=== PATIENT | female | born 1995 | race American Indian/Alaskan Native ===

== ENCOUNTER 2017-01-27 05:00 | Emergency (ER) | payer SELFPAY ==
[2017-01-27] MEDS ORDERED: Ondansetron 4 MG/2 ML SDV IVPUSH ONE (05:43)
[2017-01-27] MEDS ORDERED: HYDROmorphone 1 MG/ML Syringe IVPUSH ONE (05:43)
[2017-01-27] MEDS ORDERED: LORazepam 2 MG/ML MDV IVPUSH ONE (05:44)
[2017-01-27] MEDS ORDERED: Sodium Chloride 0.9% 1,000 ML IV SCH ×3 (05:45→08:00)
[2017-01-27] MEDS ORDERED: Ciprofloxacin 500 MG Tab PO ONE (06:52)
[2017-01-27] MEDS ORDERED: Sodium Chloride 0.9% 10 ML Syringe FLUSH ONE (07:02)
--- NOTE | 2017-01-27 07:04 | EDM.PDOC ---
<Jeremias Chino - Last Filed: 01/27/17 07:04> ED HPI GENERAL MEDICAL PROBLEM - General Chief Complaint: Abdominal Pain Stated Complaint: SOB/ABD PAIN Time Seen by Provider: 01/27/17 05:36 Source of Information: Reports: Patient History Limitations: Reports: No Limitations - History of Present Illness INITIAL COMMENTS - FREE TEXT/NARRATIVE: History of present illness: [21-year-old female presented complaining of severe abdominal pain located in the right upper quadrant. She presented crying she was in so much pain. About one month ago she took plan B and currently is having a heavy period. She denies any fevers or chills slight nausea no vomiting no constipation diarrhea or dysuria. She initially was complaining of shortness of breath as well. She's had no cough. She has no history of PE or blood clots.] Review of systems: As per history of present illness and below otherwise all systems reviewed and negative. Past medical history: As per history of present illness and as reviewed below otherwise noncontributory. Surgical history: As per history of present illness and as reviewed below otherwise noncontributory. Social history: No reported history of drug or alcohol abuse. Family history: As per history of present illness and as reviewed below otherwise noncontributory. Physical exam: Gen.: She presented in severe pain very slow to move very slow to lie down on the gurney and tearful. HEENT: Atraumatic, normocephalic, pupils reactive, negative for conjunctival pallor or scleral icterus, mucous membranes moist, throat clear, neck supple, nontender, trachea midline. Lungs: Clear to auscultation, breath sounds equal bilaterally, chest nontender. Heart: S1S2, regular, negative for clicks, rubs, or JVD. Abdomen: She had tenderness to palpation in the right upper quadrant and some questionable CVA tenderness on the right as well. No masses or organomegaly were appreciated all sounds were active. Pelvis: Stable nontender. Genitourinary: Deferred. Rectal: Deferred. Extremities: Atraumatic, negative for cords or calf pain. Neurovascular unremarkable. Neuro: Awake, alert, oriented. Cranial nerves II through XII unremarkable. Cerebellum unremarkable. Motor and sensory unremarkable throughout. Exam nonfocal. Diagnostics: [CBC is running a white count of 21,000 UA is positive with 75-100 white cells and many bacteria. Her d-dimer is over 1200. Urine culture is ordered] Therapeutics: [She's receiving IV fluids and I ordered by mouth Cipro 500 mg. She eventually told me that she was supposed to be on antibiotics for a UTI but she hasn't taken them for a week. She is upset at the [facility] for giving her "cheap antibiotics" that don't work..] Impression: [UTI with possible pyelonephritis. We are in the process of ruling out pulmonary embolus given the elevated d-dimer.] Plan: [Dr. Prescott will need to assume care and disposition.] Definitive disposition and diagnosis as appropriate pending reevaluation and review of above. abdominal pain Pain Score (Numeric/FACES): 10 - Related Data Allergies Allergy/AdvReac Type Severity Reaction Status Date / Time No Known Allergies Allergy Verified 01/27/17 05:14 Home Meds: Home Meds NK [No Known Home Meds] 01/27/17 [History] Past Medical History Cardiovascular History: Reports: None Respiratory History: Reports: None Gastrointestinal History: Reports: Chronic Constipation Genitourinary History: Reports: None RESIDENTIAL THERAPIST History: Reports: None Musculoskeletal History: Reports: Other (See Below) Other Musculoskeletal History: right side rib fx Neurological History: Reports: Migraines Psychiatric History: Reports: Anxiety, Depression Endocrine/Metabolic History: Reports: None Hematologic History: Reports: None Immunologic History: Reports: None Oncologic (Cancer) History: Reports: None Dermatologic History: Reports: None - Infectious Disease History Infectious Disease History: Reports: Chicken Pox - Past Surgical History Head Surgeries/Procedures: Reports: None HEENT Surgical History: Reports: None Cardiovascular Surgical History: Reports: None Respiratory Surgical History: Reports: None GI Surgical History: Reports: None Female Surgical History: Reports: None Endocrine Surgical History: Reports: None Neurological Surgical History: Reports: None Musculoskeletal Surgical History: Reports: None Oncologic Surgical History: Reports: None Dermatological Surgical History: Reports: None Social & Family History - Tobacco Use Smoking Status *Q: Current Every Day Smoker Years of Tobacco use: 2 Packs/Tins Daily: 0.5 - Caffeine Use Caffeine Use: Reports: Soda - Recreational Drug Use Recreational Drug Use: No ED ROS GENERAL - Review of Systems Review Of Systems: ROS reveals no pertinent complaints other than HPI. ED EXAM, GI/ABD - Physical Exam Exam: See Below Course - Vital Signs Last Recorded V/S: Last Vital Signs Temp 37.4 C 01/27/17 07:04 Pulse 104 H 01/27/17 07:04 Resp 20 01/27/17 07:04 BP 125/77 01/27/17 07:04 Pulse Ox 98 01/27/17 07:04 - Orders/Labs/Meds Orders: Active Orders 24 hr Category Date Time Status Ang Chest [CT] Stat Exams 01/27/17 06:59 Taken CULTURE URINE [RM] Stat Lab 01/27/17 07:04 Received Iopamidol [Isovue-370 (76%)] Med 01/27/17 07:15 Active 100 ml IV . DIRECTED Sodium Chloride 0.9% [Normal Saline] 1,000 ml Med 01/27/17 07:00 Active IV ASDIRECTED Sodium Chloride 0.9% [Normal Saline] 1,000 ml Med 01/27/17 08:00 Active IV ASDIRECTED Sodium Chloride 0.9% [Normal Saline] 82 ml Med 01/27/17 07:15 Active IV ASDIRECTED cefTRIAXone [Rocephin] 1 gm Med 01/27/17 08:00 Active Sodium Chloride 0.9% [Normal Saline] 50 ml IV ONETIME Medication Orders Sodium Chloride (Normal Saline) 1,000 mls @ 999 mls/hr IV ASDIRECTED [facility] Last Admin: 01/27/17 07:03 Dose: 999 mls/hr Sodium Chloride (Normal Saline) 82 mls @ 4 mls/sec IV ASDIRECTED [facility] Last Admin: 01/27/17 07:26 Dose: 4 mls/sec Sodium Chloride (Normal Saline) 1,000 mls @ 999 mls/hr IV ASDIRECTED [facility] Last Admin: 01/27/17 08:10 Dose: 999 mls/hr Ceftriaxone Sodium 1 gm/ (Sodium Chloride) 50 mls @ 100 mls/hr IV ONETIME ONE Stop: 01/27/17 08:29 Last Admin: 01/27/17 08:10 Dose: 100 mls/hr Iopamidol (Isovue-370 (76%)) 100 ml IV . DIRECTED [facility] Last Admin: 01/27/17 07:27 Dose: 100 ml Labs: Laboratory Tests 07/20/17 07/20/17 07/20/17 Range/Units 05:35 05:36 06:00 WBC 21.3 H (4.5-11.0) K/uL RBC 4.60 (3.30-5.50) M/uL Hgb 14.7 (12.0-15.0) g/dL Hct 43.2 (36.0-48.0) % MCV 94 (80-98) fL MCH 32 H (27-31) pg MCHC 34 (32-36) % Plt Count 471 H (150-400) K/uL Neut % (Auto) 81 H (36-66) % Lymph % (Auto) 7 L (24-44) % [place] % (Auto) 11 H (2-6) % Eos % (Auto) 0 L (2-4) % Baso % (Auto) 1 (0-1) % D-Dimer, Quantitative (0.0-400.0) ng/mL Sodium (140-148) mmol/L Potassium (3.6-5.2) mmol/L Chloride (100-108) mmol/L Carbon Dioxide (21-32) mmol/L Anion Gap (5.0-14.0) mmol/L BUN (7-18) mg/dL Creatinine (0.6-1.0) mg/dL Est Cr Clr Drug Dosing mL/min Estimated GFR (MDRD) (>60) Glucose (74-106) mg/dL Calcium (8.5-10.1) mg/dL Total Bilirubin (0.2-1.0) mg/dL AST (15-37) U/L ALT (12-78) U/L Alkaline Phosphatase (46-116) U/L Total Protein (6.4-8.2) g/dL Albumin (3.4-5.0) g/dL Globulin (2.3-3.5) g/dL Albumin/Globulin Ratio (1.2-2.2) Amylase (25-115) U/L Lipase (73-393) U/L Urine Color Yellow Urine Appearance Cloudy Urine pH 5.0 (4.5-8.0) Ur Specific [place] 1.020 (1.008-1.030) Urine Protein Trace (NEGATIVE) mg/dL Urine Glucose (UA) Normal (NEGATIVE) mg/dL Urine Ketones 15 H (NEGATIVE) mg/dL Urine Occult Blood Large (NEGATIVE) Urine Nitrite Positive H (NEGATIVE) Urine Bilirubin Negative (NEGATIVE) Urine Urobilinogen Normal (NORMAL) mg/dL Ur Leukocyte Esterase Large (NEGATIVE) Urine RBC 40-50 H (0-5) Urine WBC 75-100 H (0-5) Ur Epithelial Cells Moderate Amorphous Sediment Not seen Urine Bacteria Many Urine Mucus Not seen Urine HCG, Qual Negative Urine Opiates Screen (NEGATIVE) Ur Oxycodone Screen (NEGATIVE) Urine Methadone Screen (NEGATIVE) Ur Propoxyphene Screen (NEGATIVE) Ur Barbiturates Screen (NEGATIVE) Ur Tricyclics Screen (NEGATIVE) Ur Phencyclidine Scrn (NEGATIVE) Ur Amphetamine Screen (NEGATIVE) U Methamphetamines Scrn (NEGATIVE) Urine MDMA Screen (NEGATIVE) U Benzodiazepines Scrn (NEGATIVE) U Cocaine Metab Screen (NEGATIVE) U Marijuana (THC) Screen (NEGATIVE) 01/27/17 01/27/17 01/27/17 Range/Units 06:00 06:00 06:00 WBC (4.5-11.0) K/uL RBC (3.30-5.50) M/uL Hgb (12.0-15.0) g/dL Hct (36.0-48.0) % MCV (80-98) fL MCH (27-31) pg MCHC (32-36) % Plt Count (150-400) K/uL Neut % (Auto) (36-66) % Lymph % (Auto) (24-44) % [place] % (Auto) (2-6) % Eos % (Auto) (2-4) % Baso % (Auto) (0-1) % D-Dimer, Quantitative 1970 H (0.0-400.0) ng/mL Sodium 139 L (140-148) mmol/L Potassium 3.9 (3.6-5.2) mmol/L Chloride 102 (100-108) mmol/L Carbon Dioxide 27 (21-32) mmol/L Anion Gap 13.9 (5.0-14.0) mmol/L BUN 10 (7-18) mg/dL Creatinine 0.8 (0.6-1.0) mg/dL Est Cr Clr Drug Dosing 93.21 mL/min Estimated GFR (MDRD) > 60 (>60) Glucose 96 (74-106) mg/dL Calcium 9.2 (8.5-10.1) mg/dL Total Bilirubin 0.3 (0.2-1.0) mg/dL AST 17 (15-37) U/L ALT 15 (12-78) U/L Alkaline Phosphatase 79 (46-116) U/L Total Protein 8.6 H (6.4-8.2) g/dL Albumin 3.4 (3.4-5.0) g/dL Globulin 5.2 H (2.3-3.5) g/dL Albumin/Globulin Ratio 0.7 L (1.2-2.2) Amylase 51 (25-115) U/L Lipase 94 (73-393) U/L Urine Color Urine Appearance Urine pH (4.5-8.0) Ur Specific [place] (1.008-1.030) Urine Protein (NEGATIVE) mg/dL Urine Glucose (UA) (NEGATIVE) mg/dL Urine Ketones (NEGATIVE) mg/dL Urine Occult Blood (NEGATIVE) Urine Nitrite (NEGATIVE) Urine Bilirubin (NEGATIVE) Urine Urobilinogen (NORMAL) mg/dL Ur Leukocyte Esterase (NEGATIVE) Urine RBC (0-5) Urine WBC (0-5) Ur Epithelial Cells Amorphous Sediment Urine Bacteria Urine Mucus Urine HCG, Qual Urine Opiates Screen (NEGATIVE) Ur Oxycodone Screen (NEGATIVE) Urine Methadone Screen (NEGATIVE) Ur Propoxyphene Screen (NEGATIVE) Ur Barbiturates Screen (NEGATIVE) Ur Tricyclics Screen (NEGATIVE) Ur Phencyclidine Scrn (NEGATIVE) Ur Amphetamine Screen (NEGATIVE) U Methamphetamines Scrn (NEGATIVE) Urine MDMA Screen (NEGATIVE) U Benzodiazepines Scrn (NEGATIVE) U Cocaine Metab Screen (NEGATIVE) U Marijuana (THC) Screen (NEGATIVE) 01/27/17 Range/Units 06:10 WBC (4.5-11.0) K/uL RBC (3.30-5.50) M/uL Hgb (12.0-15.0) g/dL Hct (36.0-48.0) % MCV (80-98) fL MCH (27-31) pg MCHC (32-36) % Plt Count (150-400) K/uL Neut % (Auto) (36-66) % Lymph % (Auto) (24-44) % [place] % (Auto) (2-6) % Eos % (Auto) (2-4) % Baso % (Auto) (0-1) % D-Dimer, Quantitative (0.0-400.0) ng/mL Sodium (140-148) mmol/L Potassium (3.6-5.2) mmol/L Chloride (100-108) mmol/L Carbon Dioxide (21-32) mmol/L Anion Gap (5.0-14.0) mmol/L BUN (7-18) mg/dL Creatinine (0.6-1.0) mg/dL Est Cr Clr Drug Dosing mL/min Estimated GFR (MDRD) (>60) Glucose (74-106) mg/dL Calcium (8.5-10.1) mg/dL Total Bilirubin (0.2-1.0) mg/dL AST (15-37) U/L ALT (12-78) U/L Alkaline Phosphatase (46-116) U/L Total Protein (6.4-8.2) g/dL Albumin (3.4-5.0) g/dL Globulin (2.3-3.5) g/dL Albumin/Globulin Ratio (1.2-2.2) Amylase (25-115) U/L Lipase (73-393) U/L Urine Color Urine Appearance Urine pH (4.5-8.0) Ur Specific [place] (1.008-1.030) Urine Protein (NEGATIVE) mg/dL Urine Glucose (UA) (NEGATIVE) mg/dL Urine Ketones (NEGATIVE) mg/dL Urine Occult Blood (NEGATIVE) Urine Nitrite (NEGATIVE) Urine Bilirubin (NEGATIVE) Urine Urobilinogen (NORMAL) mg/dL Ur Leukocyte Esterase (NEGATIVE) Urine RBC (0-5) Urine WBC (0-5) Ur Epithelial Cells Amorphous Sediment Urine Bacteria Urine Mucus Urine HCG, Qual Urine Opiates Screen Negative (NEGATIVE) Ur Oxycodone Screen Negative (NEGATIVE) Urine Methadone Screen Negative (NEGATIVE) Ur Propoxyphene Screen Negative (NEGATIVE) Ur Barbiturates Screen Negative (NEGATIVE) Ur Tricyclics Screen Negative (NEGATIVE) Ur Phencyclidine Scrn Negative (NEGATIVE) Ur Amphetamine Screen Negative (NEGATIVE) U Methamphetamines Scrn Negative (NEGATIVE) Urine MDMA Screen Negative (NEGATIVE) U Benzodiazepines Scrn Negative (NEGATIVE) U Cocaine Metab Screen Negative (NEGATIVE) U Marijuana (THC) Screen Positive H (NEGATIVE) Meds: Medications Generic Name Dose Route Start Last Admin Trade Name Freq PRN Reason Stop Dose Admin Sodium Chloride 1,000 mls @ 999 mls/hr 01/27/17 07:00 01/27/17 07:03 Normal Saline IV 999 mls/hr ASDIRECTED BRAD Administration Sodium Chloride 82 mls @ 4 mls/sec 01/27/17 07:15 01/27/17 07:26 Normal Saline IV 4 mls/sec ASDIRECTED BRAD Administration Sodium Chloride 1,000 mls @ 999 mls/hr 01/27/17 08:00 01/27/17 08:10 Normal Saline IV 999 mls/hr ASDIRECTED BRAD Administration Ceftriaxone Sodium 1 gm/ 50 mls @ 100 mls/hr 01/27/17 08:00 01/27/17 08:10 Sodium Chloride IV 01/27/17 08:29 100 mls/hr ONETIME ONE Administration Iopamidol 100 ml 01/27/17 07:15 01/27/17 07:27 Isovue-370 (76%) IV 100 ml . DIRECTED BRAD Administration Discontinued Medications Generic Name Dose Route Start Last Admin Trade Name Toniq PRN Reason Stop Dose Admin Ciprofloxacin 500 mg 01/27/17 06:52 01/27/17 07:03 Ciprofloxacin Hcl PO 01/27/17 06:53 500 mg ONETIME ONE Administration Hydromorphone HCl 0.5 mg 01/27/17 05:43 01/27/17 06:01 Dilaudid IVPUSH 01/27/17 05:44 0.5 mg ONETIME ONE Administration Sodium Chloride 1,000 mls @ 500 mls/hr 01/27/17 05:45 01/27/17 06:01 Normal Saline IV 500 mls/hr ASDIRECTED BRAD Administration Lorazepam 1 mg 01/27/17 05:44 01/27/17 06:59 Ativan IVPUSH 01/27/17 05:45 Not Given ONETIME ONE Lorazepam 0.5 mg 01/27/17 08:18 Ativan PO 01/27/17 08:19 ONETIME ONE Ondansetron HCl 4 mg 01/27/17 05:43 01/27/17 06:01 Zofran IVPUSH 01/27/17 05:44 4 mg ONETIME ONE Administration Sodium Chloride 10 ml 01/27/17 07:02 01/27/17 07:26 Saline Flush FLUSH 01/27/17 07:03 10 ml ONETIME ONE Administration Departure - Departure Disposition: Home, Self-Care 01 Clinical Impression: Pyelonephritis - Discharge Information Forms: ED Department Discharge Care Plan Goals: push fluids, cipro 500mg bid for 10 days, rtc if pt is more ill, tylenol and motrin for pain. - My Orders Last 24 Hours: My Active Orders 01/27/17 08:00 Sodium Chloride 0.9% [Normal Saline] 1,000 ml IV ASDIRECTED cefTRIAXone [Rocephin] 1 gm Sodium Chloride 0.9% [Normal Saline] 50 ml IV ONETIME - Assessment/Plan Last 24 Hours: My Active Orders 01/27/17 08:00 Sodium Chloride 0.9% [Normal Saline] 1,000 ml IV ASDIRECTED cefTRIAXone [Rocephin] 1 gm Sodium Chloride 0.9% [Normal Saline] 50 ml IV ONETIME <Britt Prescott - Last Filed: 01/27/17 08:25> Course - Re-Assessments/Exams Free Text/Narrative Re-Assessment/Exam: 01/27/17 08:19 pt had a neg cat scan of the chest for PEs. She was given rocephen 1 gm iv and she had her first dose of cipro. She states she does not have the money to get anantibiotic.s She will be given 4.00 for a 10 day course of cipro. Departure - Departure Time of Disposition: 08:23 Condition: Fair
[2017-01-27 07:05] VITALS: BP 125/77
[2017-01-27] MEDS ORDERED: Iopamidol 755 Mg/ML 100 ML Bottle IV SCH (07:15)
[2017-01-27] MEDS ORDERED: cefTRIAXone 1 GM in Sodium Chloride 0.9% 50 ML IV ONE ×2 (07:16→08:00)
[2017-01-27] MEDS ORDERED: LORazepam 0.5 MG Tab PO ONE (08:18)
== END 2017-01-27 08:58 | disposition home or self-care (01) ==
LOC: JP.ED 05:00
DX: N12 Tubulo-interstitial nephritis, not specified as acute or chronic (principal); G43.909 Migraine, unspecified, not intractable, without status migrainosus; F17.210 Nicotine dependence, cigarettes, uncomplicated
CPT/HCPCS: 36415; 71275; 80053; 80305; 81001; 81025; 82150; 83690; 85025; 85379; 87077; 87086; 87186; 96361; 96374; 96375; 99284; A9270; J0696; J1170; J2405; J7030; J7040; J7050; Q9967

== ENCOUNTER 2020-08-08 01:46 | Emergency (ER) | payer MEDICAID ==
[2020-08-08 01:59] VITALS: BP 112/78; PULSE 68
--- NOTE | 2020-08-08 02:08 | EDM.PDOC ---
ED HPI GENERAL MEDICAL PROBLEM - General Chief Complaint: Abdominal Pain Stated Complaint: ABD PAIN Time Seen by Provider: 08/08/20 01:56 Source of Information: Reports: Patient History Limitations: Reports: No Limitations - History of Present Illness INITIAL COMMENTS - FREE TEXT/NARRATIVE: Amrita is a 25-year-old female presenting to the ED for evaluation of mid abdominal pain that occurred before and after she had a 15-minute period of repeated vomiting. The patient reports that she vomited up white rice which is what she had consumed with dinner. She denies any fever or chills. She no longer has any nausea. She denies any diarrhea or constipation. She is complaining of sharp pain in the mid abdominal area between the epigastric and umbilicus regions. Pain is reproducible with palpation over the abdominal wall. The patient otherwise feels well. - Related Data Allergies Allergy/AdvReac Type Severity Reaction Status Date / Time No Known Allergies Allergy Verified 08/08/20 01:58 Home Meds: Home Meds NK [No Known Home Meds] 01/27/17 [History] Past Medical History Cardiovascular History: Reports: None Respiratory History: Reports: None Gastrointestinal History: Reports: Chronic Constipation Genitourinary History: Reports: None INTERNAL COMMUNICATIONS WRITER History: Reports: None Musculoskeletal History: Reports: Other (See Below) Other Musculoskeletal History: right side rib fx Neurological History: Reports: Migraines Psychiatric History: Reports: Anxiety, Depression Endocrine/Metabolic History: Reports: None Hematologic History: Reports: None Immunologic History: Reports: None Oncologic (Cancer) History: Reports: None Dermatologic History: Reports: None - Infectious Disease History Infectious Disease History: Reports: Chicken Pox - Past Surgical History Head Surgeries/Procedures: Reports: None HEENT Surgical History: Reports: None Cardiovascular Surgical History: Reports: None Respiratory Surgical History: Reports: None GI Surgical History: Reports: None Female Surgical History: Reports: None Endocrine Surgical History: Reports: None Neurological Surgical History: Reports: None Musculoskeletal Surgical History: Reports: None Oncologic Surgical History: Reports: None Dermatological Surgical History: Reports: None Social & Family History - Caffeine Use Caffeine Use: Reports: Soda ED ROS GENERAL - Review of Systems Review Of Systems: See Below Constitutional: Reports: No Symptoms HEENT: Reports: No Symptoms Respiratory: Reports: No Symptoms Cardiovascular: Reports: No Symptoms Endocrine: Reports: No Symptoms GI/Abdominal: Reports: Abdominal Pain (Mid abdomen between the epigastric and umbilical regions that is sharp, stabbing in nature.), Nausea, Vomiting : Reports: No Symptoms Musculoskeletal: Reports: No Symptoms Skin: Reports: No Symptoms Neurological: Reports: No Symptoms Psychiatric: Reports: No Symptoms Hematologic/Lymphatic: Reports: No Symptoms Immunologic: Reports: No Symptoms ED EXAM, GI/ABD - Physical Exam Exam: See Below Exam Limited By: No Limitations General Appearance: Alert, WD/WN, No Apparent Distress Eyes: Bilateral: EOMI Throat/Mouth: Normal Inspection, Normal Oropharynx, Normal Voice Head: Atraumatic, Normocephalic Neck: Normal Inspection, Supple Respiratory/Chest: No Respiratory Distress, Lungs Clear, Normal Breath Sounds Cardiovascular: Normal Peripheral Pulses, Regular Rate, Rhythm, No Murmur GI/Abdominal Exam: Normal Bowel Sounds, Soft, Tender (Mild tenderness to palpation over the epigastric region. This remains unchanged when the patient tenses her abdominal muscles.). No: Distended, Guarding, Rigid, Rebound Back Exam: Full Range of Motion Extremities: Normal Inspection, Normal Range of Motion Neurological: Alert, Oriented, Normal Cognition, No Motor/Sensory Deficits Psychiatric: Normal Affect, Normal Mood Skin Exam: Warm, Dry Lymphatic: No Adenopathy Course - Vital Signs Last Recorded V/S: Last Vital Signs Temp 36.4 C 08/08/20 01:59 Pulse 68 08/08/20 01:59 Resp 16 08/08/20 01:59 BP 112/78 08/08/20 01:59 Pulse Ox 99 08/08/20 01:59 - Orders/Labs/Meds Labs: Laboratory Tests 08/08/20 08/08/20 Range/Units 02:15 02:15 WBC 14.9 H (4.5-11.0) K/uL RBC 4.59 (3.30-5.50) M/uL Hgb 14.8 (12.0-15.0) g/dL Hct 43.6 (36.0-48.0) % MCV 95 (80-98) fL MCH 32 H (27-31) pg MCHC 34 (32-36) % Plt Count 435 H (150-400) K/uL Neut % (Auto) 76 H (36-66) % Lymph % (Auto) 15 L (24-44) % [place] % (Auto) 7 H (2-6) % Eos % (Auto) 2 (2-4) % Baso % (Auto) 0 (0-1) % Sodium 141 (140-148) mmol/L Potassium 4.1 (3.6-5.2) mmol/L Chloride 104 (100-108) mmol/L Carbon Dioxide 28 (21-32) mmol/L Anion Gap 9.1 (5.0-14.0) mmol/L BUN 10 (7-18) mg/dL Creatinine 0.9 (0.6-1.0) mg/dL Est Cr Clr Drug Dosing 80.42 mL/min Estimated GFR (MDRD) > 60 (>60) Glucose 94 (74-106) mg/dL Calcium 8.9 (8.5-10.1) mg/dL Total Bilirubin 0.7 D (0.2-1.0) mg/dL AST 47 H D (15-37) U/L ALT 49 D (12-78) U/L Alkaline Phosphatase 105 (46-116) U/L Total Protein 7.5 (6.4-8.2) g/dL Albumin 3.8 (3.4-5.0) g/dL Globulin 3.7 H (2.3-3.5) g/dL Albumin/Globulin Ratio 1.0 L (1.2-2.2) Lipase 105 (73-393) U/L - Re-Assessments/Exams Free Text/Narrative Re-Assessment/Exam: 08/08/20 02:48 I reviewed the patient's labs and it appears that she has a little bit of a leukocytosis with a left shift likely indicating a viral gastroenteritis as a cause for her nausea and vomiting. Her comprehensive metabolic panel and lipase are normal. Again I believe that her abdominal pain is most likely related to abdominal muscle strain from the vomiting. As she is currently symptom-free, I do not believe that any medication is required, however, I will give her a prescription she can fill in the morning for Zofran should she need it. At this time, I believe the patient is suitable for discharge home in satisfactory condition. Departure - Departure Time of Disposition: 02:49 Disposition: Home, Self-Care 01 Condition: Good Clinical Impression: Epigastric abdominal pain, Gastroenteritis Vomiting Qualifiers: Vomiting type: unspecified Vomiting Intractability: non-intractable Nausea presence: with nausea Qualified Code(s): R11.2 - Nausea with vomiting, unspecified - Discharge Information *PRESCRIPTION DRUG MONITORING PROGRAM REVIEWED*: Not Applicable *COPY OF PRESCRIPTION DRUG MONITORING REPORT IN PATIENT [place]LLY: Not Applicable Instructions: Nausea and Vomiting, Adult, Abdominal Pain, Adult Referrals: PCP,None [Primary Care Provider] - Forms: ED Department Discharge Care Plan Goals: I have sent a prescription for Zofran for nausea and vomiting to the [facility]. You may pick this up in the lobby to have on hand should your nausea and vomiting return. Based on my examination and the labs, it appears that you have a viral gastroenteritis, AKA, stomach flu and may develop a little bit of diarrhea over the next 24 hours. You should maintain good hydration to prevent dehydration drinking frequent small amounts of fluids should any diarrhea began. These infections are usually self-limiting and will pass fairly quickly. As for your abdominal pain, again I believe this is due to strain of the abdominal muscles and would likely resolve over the next 2 to 3 days. Sepsis Event Note (ED) - Focused Exam Vital Signs: Vital Signs Temp Pulse Resp BP Pulse Ox 08/08/20 01:59 36.4 C 68 16 112/78 99 08/08/20 01:58 36.4 C 68 16 112/78 99 - Problem List & Annotations (1) Epigastric abdominal pain SNOMED Code(s): 65946898 Code(s): R10.13 - EPIGASTRIC PAIN Status: Acute Priority: High Current Visit: Yes (2) Gastroenteritis SNOMED Code(s): 36397714 Code(s): K52.9 - NONINFECTIVE GASTROENTERITIS AND COLITIS, UNSPECIFIED Status: Acute Priority: High Current Visit: Yes - Problem List Review Problem List Initiated/Reviewed/Updated: Yes
== END 2020-08-08 02:59 | disposition home or self-care (01) ==
LOC: JP.ED 01:46
DX: K52.9 Noninfective gastroenteritis and colitis, unspecified (principal)
CPT/HCPCS: 36415; 80053; 83690; 85025; 99283; 99284